=== PATIENT | male | born 1975 | race Caucasian/White ===

== ENCOUNTER 2016-05-22 15:23 | Emergency (ER) | payer BC ==
[2016-05-22 16:53] VITALS: BP 152/93
[2016-05-22] MEDS ORDERED: Lidocaine 1% MPF* 2 ML VIAL ONE ×2 (19:21→19:50)
[2016-05-22] MEDS ORDERED: Ethyl Chloride SPRAY (NF) BTL ONE (19:21)
--- NOTE | 2016-05-22 19:29 | UC ---
Skin Complaint HPI - HPI Summary HPI Summary: Small pimple noted on left forearm last weekend, seen PCP on Wednesday soft purulent center to abscess - History of Current Complaint Chief Complaint: UCSkin Time Seen by Provider: 05/22/16 19:09 Stated Complaint: SKIN SOFT TISSUE Hx Obtained From: Patient Onset/Duration: Gradual Onset, Lasting Days - 6, Still Present, Worse Since - past 24 hours Timing: Constant Onset Severity: Mild Current Severity: Moderate Pain Intensity: 5 Pain Scale Used: 0-10 Numeric Location: Discrete - left forearm Character: Pain, Redness, Raised Aggravating: Touch Alleviating: Nothing Associated Signs & Symptoms: Positive: Tenderness. Negative: Fever, Chills, Drainage, Red Streaks, Joint Swelling - Allergy/Home Medications Allergies/Adverse Reactions: Allergies Allergy/AdvReac Type Severity Reaction Status Date / Time No Known Allergies Allergy Verified 05/22/16 16:53 Home Medications: Home Medications Amphetamine MIXED SALT TAB* [Adderall TAB*] 20 mg PO DAILY 05/22/16 [History Confirmed 05/22/16] Review of Systems Constitutional: Negative Skin: Other - abscess left forearm Eyes: Negative ENT: Negative Respiratory: Negative Cardiovascular: Negative Gastrointestinal: Negative Genitourinary: Negative Motor: Other - full rom left elbow, Neurovascular: Negative Musculoskeletal: Negative Neurological: Negative Psychological: Negative All Other Systems Reviewed And Are Negative: Yes PMH/Surg Hx/FS Hx/Imm Hx Previously Healthy: No - abscess last year MSSA - Surgical History Surgical History: Yes Surgery Procedure, Year, and Place: CHOLECYSTECTOMY 2001 - Family History Known Family History: Positive: None Family History: denies cardiovascular disease in family lineage - Social History Occupation: Employed Full-time Lives: With Family Alcohol Use: Occasionally Substance Use Type: None Smoking Status (MU): Never Smoked Tobacco Physical Exam Triage Information Reviewed: Yes Appearance: Well-Appearing, No Pain Distress, Well-Nourished Vital Signs: Initial Vital Signs Temp 99.5 F 05/22/16 16:49 Pulse 102 05/22/16 16:49 Resp 18 05/22/16 16:49 BP 152/93 05/22/16 16:49 Pulse Ox 96 05/22/16 16:49 Vital Signs Reviewed: Yes Eye Exam: Normal Eyes: Positive: Conjunctiva Clear ENT Exam: Normal ENT: Positive: Normal ENT inspection, Hearing grossly normal. Negative: Nasal congestion, Nasal drainage, Trismus, Muffled/hoarse voice Dental Exam: Normal Neck exam: Normal Neck: Positive: Supple, Nontender, No Lymphadenopathy Respiratory Exam: Normal Respiratory: Positive: Chest non-tender, No respiratory distress, No accessory muscle use Cardiovascular Exam: Normal Cardiovascular: Positive: No Murmur, Pulses Normal, Brisk Capillary Refill Musculoskeletal Exam: Normal Musculoskeletal: Positive: Strength Intact, ROM Intact, No Edema Neurological Exam: Normal Neurological: Positive: Alert Psychological Exam: Normal Skin: Positive: significant lesion(s) - 7 x7 cm erythema left lower arm, 1 cm diameter fluctulant mass center of abscess Re-Evaluation - Re-Evaluation First Eval Change: Improved - 10 cc of purulent drainage, wound culture obtained dsressing applied, patient tolerated well Course/Dx - Course Course Of Treatment: add keflex, culture wound, continue worm soaks, dressing [place] daily, packing removed in 1-2 days follow with pcp or urgent care for recheck - Differential Diagnoses - Skin Complaint Differential Diagnoses: Abscess, Cellulitis, Impetigo - Diagnoses Provider Diagnoses: I&D with packing left forearm abscess Procedures - Incision and Drainage Site: left forearm Anesthesia: Topical - ethtly choride spray, Lidocaine - 4 cc Instrument(s): Scalpel Packing: Drain - 1/2 of 1/4 inch plain Discharge - Discharge Plan Condition: Stable Disposition: HOME Prescriptions: Cephalexin CAP* [Keflex CAP*] 500 mg PO QID #40 cap HYDROcodone/ACETAMIN 5-325 MG* [[place] 5-325 TAB*] 1 tab PO Q6H PRN #12 tab MDD 4 PRN Reason: pain Patient Education Materials: Abscess (ED), Incision and Drainage (ED) Referrals: Alverto Escobedo MD [Medical Doctor] - Jennifer Gruber MD [Medical Doctor] - 4 Days Additional Instructions: To Emergency Department if erythema (redness) extends,fever, increase pain in elbow or decreased motion Remove packing Wednesday
[2016-05-22] MEDS ORDERED: cefTRIAXone VIAL(*) 1,000 MG VIAL IM ONE (19:45)
== END 2016-05-22 19:58 | disposition home or self-care (01) ==
LOC: UCEAST 15:23
DX: L02.414 Cutaneous abscess of left upper limb (principal); Z90.49 Acquired absence of other specified parts of digestive tract
CPT/HCPCS: 10060; 87070; 87077; 87186; 87205; 96372; 99212; A9270-GY; G0463; J0696